=== PATIENT | female | born 1990 | race Two or more races ===

== ENCOUNTER 2019-04-01 23:37 | Inpatient (IN) | payer MEDICAID ==
[2019-04-02] MEDS ORDERED: Acetaminophen 325 MG TAB PO SCH (00:15)
--- NOTE | 2019-04-02 00:17 | PDOC.FPROB ---
FMR OB H&P: Medications - Current Home Medications: Medication Instructions Recorded Confirmed Type No Known 04/02/19 04/02/19 History Allergies/Adverse Reactions: Allergies Allergy/AdvReac Type Severity Reaction Status Date / Time No Known Allergies Allergy Unverified 04/02/19 00:23 FMR OB H&P: A/P - Problem List (1) Current Visit: Yes Status: Acute (2) induced hypertension Current Visit: Yes Status: Acute Code(s): O13.9 - GESTATIONAL HTN W/O SIGNIFICANT PROTEINURIA, UNSP TRIMESTER Discussion: Date/Time: 04/02/1916 PCP: [facility], unsure of PCP [facility] HPI: Patient moved in with friend a few days ago???. Friend reports patient moved in with her, patient reports she is just visiting. Patient stated she was undecided if she would live in [place] or [place], she was undecided if she would deliver in [place] or [place]. Has had all of her care thus far in [place]. Patient states that for the last day or so she has noticed blurry vision, feels like I be trippin. States blurry vision comes and goes, last a few seconds at a time. Had pre-eclampsia with last child and is worried she may have it once again. Has had headache last few days that gets better when she takes Tylenol. No N/V/D. No cough or SOB. Denies any progression of swelling. Denies epigastric pain. Contractions a few times per day She affirms movement, denies ROM, denies bleeding/discharge. History: OB hx: at 38wks, pre-eclampsia, miscarriage x1 PMH: denies HTN, DM, asthma PSH: negative Meds: PNV, denies taking aspirin All: NKDA Soc Hx: denies smoking, alcohol, drugs Fam Hx: denies downs, congenital defects GBS neg REVIEW OF SYSTEMS: Gen: no fever, chills, or sweats Neuro: no numbness/tingling, no weakness ENT: denies congestion Eyes: no visual changes Resp: denies cough, no production, no SOB, no wheeze Card: denies chest pain, no palpitations GI: denies nausea, vomiting, diarrhea : no dysuria, no hematuria Skin: no rash, no erythema Psych: denies hx anxiety/depression Vitals: T: 98.6 R: 18 BP: 141/80 P:83 at: 98% on RA PHYSICAL EXAMINATION: General: NAD, alert and oriented x3 HEENT: EOMI, normal sclera Neck: Supple. Full ROM. Heart/Cardiovascular System: RRR, Cap refill < 3 seconds, no rub, no murmur Lungs/Respiratory System: clear to auscultation bilaterally. No increased work of breathing. Room air. Abdomen/Gastro-Intestinal System: no abdominal tenderness, normal bowel sounds, Gravid Extremities: Warm extremities. No cyanosis or edema. Neuro: No gross deficits appreciated Psychiatry: Awake, Alert and cooperative with exam Skin: no lesions, no rashes Musculoskeletal: Full ROM A/P: This is a 29 yo at 38.4 wks here for blurry vision ABDULAZIZ: 04/12 by 21.0 wk US FHT: 150 baseline, mod variability, no decels, accels present [place]: no contractions SVE: /50/-3 # PIH - pr/cr ratio 0.44 on clean catch, 0.48 on cath - patient states she had preeclampsia with first child, she has not been on aspirin throughout this - plts, transaminases WNL - pressure steady in 140s/80s, patient states symptoms improved since arrival at time of admission - No severe range pressures as of yet - will plan for mag at active phase or with severe pressures or worsening sxs # Term - induction 07/30 38.4 wks + PIH - US shows 7lbs 11oz infant, normal fluid, see report - cytotec induction # care in [place] - see phone note, verbal info received from on-call physician at [facility] - no care labs ordered - GBS negative per phone call, will continue to try for records in AM once medical records dept open -
[2019-04-02 00:22] VITALS: BMI 26.4
[2019-04-02] MEDS ORDERED: hydrALAZINE 20 MG/ML VIAL SLOW IVP PRN (00:27)
[2019-04-02 00:41] LABS: #Lymphocytes 1.4 thou/uL (1.20-3.40); #Monocytes 0.5 thou/uL (0.11-0.59); #Neutrophils 6.2 thou/uL (1.40-6.50); %Basophils 0.4 % (0.0-1.0); %Eosinophils 0.5 % (0.0-10.0); %Lymphocytes 17.3 % (21.0-51.0); %Monocytes 5.9 % (0.0-10.0); Hemoglobin 11.9 g/dL (12.0-16.0); Mean Corpuscular HGB CONC 35.9 g/dL (32.0-36.0); Mean Corpuscular Hemoglobin 33.1 pg (27.0-31.0); Mean Corpuscular Volume 92.2 fL (78.0-98.0); Mean Platelet Volume 8.1 fL (7.4-10.4); Platelet Count 225 thou/uL (130-400); RBC Distribution Width 12.3 % (11.5-14.5); Red Blood Cell (RBC) Count 3.61 mill/uL (4.20-5.40); White Blood Cell (WBC) Count 8.2 thou/uL (4.8-10.8)
[2019-04-02 01:03] LABS: ALT (SGPT) 11 U/L (8-55); AST (SGOT) 17 U/L (5-34); Albumin 3.6 g/dL (3.5-5.0); Alkaline Phosphatase 172 U/L (40-110); Anion Gap 15 mmol/L (10-20); BUN (Urea Nitrogen) 7 mg/dL (7.0-18.7); Bilirubin, Total 0.3 mg/dL (0.2-1.2); Calc. Creatinine Clearance 136 mL/min (70-130); Carbon Dioxide 20 mmol/L (22-29); Chloride 104 mmol/L (98-107); Estimated GFR-MDRD Greater than 90; Globulin 2.9 g/dL (2.4-3.5); Glucose 114 mg/dL (70-105); Potassium 3.8 mmol/L (3.5-5.1); Protein, Total 6.5 g/dL (6.0-8.3); Sodium 135 mmol/L (136-145)
[2019-04-02 01:05] LABS: Amphetamine Not Detected (NotDetected); Barbiturates Screen Not Detected (NotDetected); Benzodiazepine Screen Not Detected (NotDetected); Cocaine Metabolite Screen Not Detected (NotDetected); Medtox Control Line Valid? VALID (VALID); Medtox Reader # READER 1; Methadone Not Detected (NotDetected); Methamphetamine Not Detected (NotDetected); Opiate Screen Not Detected (NotDetected); Oxycodone Screen Not Detected (NotDetected); Phencyclidine (PCP) Not Detected (NotDetected); THC/Cannabinoid Screen Not Detected (NotDetected); Tricyclic Screen Not Detected (NotDetected)
[2019-04-02 01:11] LABS: Creatinine, Urine 54.93 mg/dL (47-110)
[2019-04-02 01:20] LABS: HBSAg Index 0.15 S/CO (0-0.99); Hep B Surf Ag Non-Reactive S/CO (NonReactive); Syphilis Antibody Nonreactive (Nonreactive); Syphilis Antibody Index 0.02 S/CO (<1.00 Non-Reactive)
[2019-04-02 01:55] LABS: Bilirubin Negative (Negative); Blood, Urine Trace (Negative); Clarity Clear (Clear); Glucose, Urine (Dipstick) Normal (Negative); Leukocyte 500 Leu/uL (Negative); Nitrite Negative (Negative); Protein, Urine (Dipstick) 20 mg/dL (Neg-Trace); RBC/HPF 0-3 HPF (0-3); Squamous Epithelial 0-3 HPF (0-3); Urobilinogen Normal mg/dL (Less than 2)
[2019-04-02 01:58] LABS: Bacteria/HPF 1+ HPF (None Seen); Urine Culture Reflex Yes Yes
[2019-04-02 02:21] LABS: Bilirubin Negative (Negative); Blood, Urine 1+ (Negative); Clarity Turbid (Clear); Glucose, Urine (Dipstick) Normal (Negative); Leukocyte 500 Leu/uL (Negative); Mucous/LPF Rare LPF (<2+); Nitrite Negative (Negative); Protein, Urine (Dipstick) 50 mg/dL (Neg-Trace); RBC/HPF 21-50 HPF (0-3); Squamous Epithelial 0-3 HPF (0-3); WBC/HPF Greater than 50 HPF (0-3)
[2019-04-02 02:24] LABS: Bacteria/HPF 1+ HPF (None Seen); Urine Culture Reflex Yes Yes
[2019-04-02 02:34] LABS: Creatinine, Urine 116.99 mg/dL (47-110)
--- NOTE | 2019-04-02 02:54 | PDOC.EVN ---
Event Note - Event Note Event Note: Called on-call team at [facility] They stated they would not be able to fax any records to our hospital Over the phone report ABDULAZIZ: 04/12 by 21.0 US GBS negative HIV neg otherwise routine care uncomplicated in 2011 per note
[2019-04-02] MEDS ORDERED: Lidocaine 1% (PF) 30 ML VIAL SC PRN (03:01)
[2019-04-02] MEDS ORDERED: Misoprostol 100 MCG TAB VAG PRN (03:01)
[2019-04-02] MEDS ORDERED: Promethazine HCl 25 MG/ML VIAL IM PRN (03:01)
[2019-04-02] MEDS ORDERED: Ondansetron PF 4 MG/2 ML Vial IVP PRN (03:01)
[2019-04-02] MEDS ORDERED: Acetaminophen 500 MG TAB PO PRN (03:01)
[2019-04-02] MEDS ORDERED: NS w/ Oxytocin 10 units 500 ML IV SCH (03:15)
[2019-04-02] MEDS ORDERED: Misoprostol 100 MCG TAB VAG SCH (03:15)
[2019-04-02] MEDS ORDERED: Fentanyl 4 mcg/Bup 0.1% Cadd 100 ML ONE ×2 (03:36→21:10)
[2019-04-02] MEDS: Lactated Ringer's 1,000 ML IV SCH (03:45)
[2019-04-02] MEDS ORDERED: Misoprostol 100 MCG TAB PO SCH (09:00)
--- NOTE | 2019-04-02 09:51 | ULT ---
PRELIMINARY REPORT/[facility]/EMERGENCY AFTER HOURS PROCEDURE: PROCEDURE INFORMATION: Exam: US , Limited Exam date and time: 04/02/2019 2:03 AM Clinical history: 29 years old, female; Lmp or gestational age (in weeks): 38w5d per PT; Other: [place] sunil BP, no records; TECHNIQUE: Imaging protocol: Real-time ultrasound of the maternal uterus with image documentation. Exam focused on the clinical indication. COMPARISON: No relevant prior studies available. FINDINGS: GESTATION: Gestation: movement is present. Heart rate: heart rate measures 152 beats per minute Presentation: Fetus is in a vertex position. Amniotic fluid: Amniotic fluid index measures 10.1 CM in Heart: Four-chamber heart is visualized the Abdomen: Bilateral kidneys are visualized. Stomach is visualized the Spine: Spine is visualized the BIOMETRY: Estimated gestational age: Estimated gestational age approximately 37 weeks 2 days. Estimated weight: Estimated weight is 3500 g. Biparietal diameter: Biparietal diameter measures 9 cm. Head circumference: Head circumference measures approximately 31.3 cm Abdominal circumference: Abdominal circumference measures approximately 36.3 cm. Femur length: Femoral length measures approximately 7.3 cm. IMPRESSION: 1. Live intrauterine with estimated gestational age of 37 weeks 2 days. 2. There is discrepancy between head circumference and abdominal circumference gestational age. Thank you for allowing us to participate in the care of your patient. Dictated and Authenticated by: Clayton Cherry MD 04/02/2019 3:23 AM Central Time ([place] & [place]) FINAL REPORT EMERGENT AFTER HOURS OB ULTRASOUND: HISTORY: No records. Elevated blood pressure and positive . FINDINGS: There is a single intrauterine gestation in cephalic presentation. Cardiac Doppler does demonstrate heart tones with a heart rate of 152 b.p.m. Subjectively, the amniotic fluid volume does appear diminished, but there is a normal amniotic fluid index of 10.1 cm. The placenta is located a nteriorly without evidence of placenta previa. measurements: Biparietal diameter 9 cm, 36 weeks 3 days Head circumference 31.32 cm, 35 weeks 1 day Abdominal circumference 36.28 cm, 40 weeks 1 day Femur length 7.26 cm, 37 weeks 1 day The estimated gestational age by ultrasound is 37 weeks and 2 days with ABDULAZIZ on 04/21/2019. Gestation al age by the last menstrual period is 38 weeks and 5 days. Estimated weight by ultrasound is 3500 gm (7 pounds, 11 ounces). This represents 61st percenti le for weight. The visualized portions of the spine, 4-chamber heart, bilateral kidneys, and stomach demonstra te a normal sonographic appearance. The visualized spine also demonstrates normal sonographic appearance. The remainder of the anatomic structures are well delineated on this exam. No def initive anomalies are seen on provided images. There is a skin thickening involving the head as well as body with a question of subcutaneous e walter. There is no ascites or pleural effusion. There is no evidence of polyhydramnios present . Etiology for skin thickening/subcutaneous edema is uncertain based on this exam and is overall non specific. IMPRESSION: 1. Skin thickening and subcutaneous edema of uncertain etiology. As noted above, there is no eviden ce of ascites or pleural effusion involving the femur, and there is no evidence of polyhydramnios. T he exact etiology is uncertain. 2. Single intrauterine gestation and presentation with heart tones documented. Gestatio nal age by ultrasound is 37 weeks and 2 days with estimated date of delivery on 04/21/2019. 3. Estimated weight is 3500 gm (7 pounds 11 ounces). 4. Discrepancy in measurements with the abdominal circumference larger in size compared to the remaining measurements, especially the head circumference. 5. The skin thickening and suggestion of subcutaneous edema involving the fetus was not mentioned on the preliminary report by [facility]. These findings were discussed with Yanelis, the nurse in charge of the patient's hospital care on the hospital floor, on 04/02/2019 at 0932 hours. CODE CR POS: OFF
[2019-04-02] MEDS ORDERED: cefTRIAXone\\ROCEPHIN 1 GM in Sodium Chloride 0.9% 100 ML IVPB SCH (10:30)
[2019-04-02] MEDS ORDERED: Sodium Chloride 0.9% 1,000 ML IV SCH (11:30)
--- NOTE | 2019-04-02 15:18 | PDOC.EVN ---
Event Note - Event Note Event Note: 29 yo at 38.4 wks here for blurry vision and admitted for induction indicated for Pre-E. IOL for pre-e - 5/70/-2 @ 1400, had SROM with light mec - epidural placed - BP have been in 150s systolic. Had 1 severe range pressure of 161/84 which resolved without intervention. Patient asymptomatic. Will continue to closely monitor and start mag if indicated. - Ctx more irregular, plan to start pitocin - will switch IVF to D5LR
[2019-04-02] MEDS: Dextrose 5%-Lactated Ringers 1,000 ML IV SCH ×2 (15:57→23:15)
[2019-04-02] MEDS ORDERED: Carboprost 250 MCG/ML AMP ONE (23:53)
[2019-04-02] MEDS ORDERED: Misoprostol 200 MCG TAB ONE (23:54)
[2019-04-03] MEDS: NS / Oxytocin 40 units/1000ml 1,000 ML IV PRN ×2 (00:05→02:07)
[2019-04-03] MEDS: Ibuprofen 800 MG TAB PO PRN ×3 (01:26→17:24)
[2019-04-03] MEDS: Lactated Ringer's 1,000 ML IV SCH (02:31)
[2019-04-03] MEDS ORDERED: Milk Of Magnesia 30 ML UDCUP PO PRN (02:50)
[2019-04-03] MEDS ORDERED: Lanolin Ointment 7 GM TUBE TOP PRN (02:50)
[2019-04-03] MEDS ORDERED: Bisacodyl 10 MG SUPP PR PRN (02:50)
[2019-04-03] MEDS ORDERED: hydrALAZINE 20 MG/ML VIAL SLOW IVP PRN (02:50)
[2019-04-03] MEDS ORDERED: NS / Oxytocin 40 units/1000ml 1,000 ML IV SCH (03:00)
[2019-04-03 05:37] LABS: Hemoglobin 10.1 g/dL (12.0-16.0)
[2019-04-03] MEDS: Ferrous Sulfate 325 MG TAB PO SCH ×2 (07:25→14:39)
[2019-04-03] MEDS: Docusate Calcium (SURFAK) 240 MG CAP PO SCH ×2 (09:00→21:37)
[2019-04-03] MEDS ORDERED: Adacel (T-DAP) 0.5 ML SYRINGE IM ONE (09:00)
[2019-04-03] MEDS: Prenatal Vitamin 1 TAB PO SCH (09:00)
[2019-04-03] MEDS: Sulfameth/Trimethoprim DS 800-160mg TAB PO SCH ×2 (09:00→21:37)
--- NOTE | 2019-04-03 09:22 | PRG ---
DATE OF SERVICE: 04/03/2019 SUBJECTIVE: The patient is a 29-year-old female, now day 1, status post a term spontaneous vaginal delivery complicated by a shoulder dystocia, resolved with [place] and suprapubic pressure. Overnight was complicated by a retained urine volume of 1500 mL, resolved with straight cath. The patient this morning has no complaints. She reports that she is bleeding some and has not been able to void yet on her own. OBJECTIVE: VITAL SIGNS: Blood pressure is 137/74, temperature 97.4, pulse of 80, respiratory rate of 18. GENERAL: She appears to be in no acute distress. She is alert, oriented, cooperative, and pleasant to interact with. HEAD: Normocephalic, atraumatic. ABDOMEN: Fundus is firm. EXTREMITIES: Nontender, nonedematous. LABORATORY DATA: Her postdelivery hemoglobin is 10.1, hematocrit 28.6. ASSESSMENT AND PLAN: The patient is a 29-year-old female, day 1, status post a term spontaneous vaginal delivery complicated with gestational hypertension and retained urine volume of 1500 mL. The patient is attempting to void today. Plan at this time is to bladder scan her after each void to make sure she is not retaining urine. Blood pressures have remained stable. We will continue to watch her throughout the day with anticipation for discharge tomorrow. Job ID: [id number]
--- NOTE | 2019-04-03 11:36 | PDOC.EVN ---
Event Note - Event Note Event Note: Needs HIV and Rubella checked...will order
--- NOTE | 2019-04-03 11:37 | PDOC.EVN ---
Event Note - Event Note Event Note: @1100...spont void was 1000 and scan was about 100 20 min later Voiding trial successful
[2019-04-03] MEDS ORDERED: Acetaminophen/Codeine 30-300mg Tablet PO PRN (12:35)
[2019-04-03 12:50] LABS: HIV (1/2) Antibody/Antigen Non-Reactive (NonReactive); HIV 1/2 INDEX 0.09 S/CO (<1.00)
--- NOTE | 2019-04-03 13:33 | PDOC.PP ---
Post Progress Note Post Day #: 1 Vital Signs (12 hours) Temp Pulse Resp BP Pulse Ox 04/03/19 12:20 98.2 F 04/03/19 11:45 99.5 F 80 20 133/67 98 04/03/19 07:19 98.1 F 89 20 130/74 98 04/03/19 04:25 97.4 F L 80 18 137/74 04/03/19 02:30 98.4 F 83 18 138/78 98 Weight Weight 61.235 kg Result Diagrams: 04/03/19 05:25 04/02/19 00:26 Additional Labs: Post Labs Blood Type A POSITIVE 04/02/19 01:11 Hep Bs Antigen Non-Reactive S/CO (NonReactive) 04/02/19 00:34
[2019-04-04] MEDS: Ibuprofen 800 MG TAB PO PRN (01:01)
--- NOTE | 2019-04-04 06:16 | PDOC.PP ---
Post Progress Note Post Day #: 2 Subjective: Doing well PO intake tolerated: yes Flatus: yes Ambulation: yes Vital Signs (12 hours) Temp Pulse Resp BP Pulse Ox 04/04/19 04:08 98.1 F 83 18 115/65 04/04/19 00:58 98.1 F 86 18 139/85 04/03/19 20:05 97.9 F 86 18 142/82 H 99 Weight Weight 135 lb BPs 130/70s with ne isolated REYNALDO noted at 140/80s last PM - Physical Examination General: NAD Abdominal: lochia, no distention, appropriately TTP Extremities: negative homans (B) Skin: CS incision dry & intact, no rash Neurological: no gross focal deficits Psychiatric: A&Ox3, normal affect Result Diagrams: 04/03/19 05:25 04/02/19 00:26 Additional Labs: Post Labs Blood Type A POSITIVE 04/02/19 01:11 Hep Bs Antigen Non-Reactive S/CO (NonReactive) 04/02/19 00:34 (1) Vaginal delivery Code(s): O80 - ENCOUNTER FOR FULL-TERM UNCOMPLICATED DELIVERY Status: Acute (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 Voiding well. BPs ok. OK for PM DC to home with BP check in 2 weeks with her provider. Regular PP check in 4 weeks
[2019-04-04] MEDS: Ferrous Sulfate 325 MG TAB PO SCH (08:22)
[2019-04-04] MEDS: Prenatal Vitamin 1 TAB PO SCH (08:24)
[2019-04-04] MEDS: Docusate Calcium (SURFAK) 240 MG CAP PO SCH (08:24)
[2019-04-04] MEDS: Sulfameth/Trimethoprim DS 800-160mg TAB PO SCH (08:24)
[2019-04-04 08:29] VITALS: TEMP 98.4
[2019-04-04 09:50] VITALS: BP 130/82
--- NOTE | 2019-04-05 10:51 | DN ---
DATE OF PROCEDURE: 04/02/2019 The patient is a 29-year-old female, who delivered on 04/02/2019 at 2345 hours. A female by a term spontaneous vaginal delivery complicated by shoulder dystocia. Dystocia was relieved with suprapubic pressure and [place] after approximately 30 seconds. Apgars were 7 and 9. Weight, 8 pounds 8 ounces. Placenta delivered spontaneously followed by Pitocin infusion. There were no lacerations. Quantitative blood loss unavailable. Estimated blood loss about 400 mL. Counts were correct. Complications as described shoulder dystocia. Condition, stable. Mother and infant both stable in the room in the immediate . Job ID: [id number]
== END 2019-04-04 15:40 | disposition home or self-care (01) | DRG 807 ==
LOC: L&D/OP 23:37 → L&D 04-02 04:09 → 3SW 04-03 02:17
PROVIDERS: ADMIT Obstetrics & Gynecology; ATTEND Obstetrics & Gynecology
PROC: 10E0XZZ Delivery of Products of Conception, External Approach (ICD-10-PCS; principal; 2019-04-02)
PROC: 3E0P7VZ Introduction of Hormone into Female Reproductive, Via Natural or Artificial Opening (ICD-10-PCS; 2019-04-02)
PROC: 3E033VJ Introduction of Other Hormone into Peripheral Vein, Percutaneous Approach (ICD-10-PCS; 2019-04-02)
PROC: 3E0234Z Introduction of Serum, Toxoid and Vaccine into Muscle, Percutaneous Approach (ICD-10-PCS; 2019-04-03)
DX: O13.4 Gestational [pregnancy-induced] hypertension without significant proteinuria, complicating childbirth (principal); Z37.0 Single live birth; O77.0 Labor and delivery complicated by meconium in amniotic fluid; O66.0 Obstructed labor due to shoulder dystocia; Z3A.38 38 weeks gestation of pregnancy
CPT/HCPCS: 36415; 76805; 80053; 80306; 81001; 82570; 84156; 84550; 85014; 85018; 85025; 86762; 86780; 86850; 86900; 86901; 87081; 87086; 87340; 87389; J0696; J2590; J3490